=== PATIENT | male | born 1975 | race Hispanic/Latino ===

== ENCOUNTER 2020-12-18 05:10 | Emergency (ER) | payer SELFPAY ==
[~2020-12-18] VITALS: Ht 175.3 cm; Wt 111.1 kg
[2020-12-18] MEDS ORDERED: TETANUS/DIPHTHERIA TOX ADULT 0.5 ML SYR IM ONE (05:45)
[2020-12-18] MEDS ORDERED: erythromycin 0.5% OP (05:51)
[2020-12-18] MEDS ORDERED: NEOMYCIN/POLYMYXIN/DEX (OPTH) 3.5 GM TUBE OP ONE (06:00)
[2020-12-18] MEDS ORDERED: NEOMYCIN/POLYMYXIN/DEX (OPTH) 3.5 GM TUBE ONE (06:01)
== END 2020-12-18 06:22 | disposition home or self-care (01) ==
LOC: ER 05:22
DX: H57.12 Ocular pain, left eye (principal); T15.02XA Foreign body in cornea, left eye, initial encounter; X58.XXXA Exposure to other specified factors, initial encounter
CPT/HCPCS: 90714; 99283